=== PATIENT | male | born 1965 | race Caucasian/White ===

== ENCOUNTER 2018-01-29 02:08 | Inpatient (IN) | payer OTHER ==
[~2018-01-29] VITALS: Ht 162.6 cm; Wt 56.2 kg
[2018-01-29 02:35] LABS: HEMATOCRIT 49.3 % (38.0-50.0); HEMOGLOBIN 17.1 G/DL (12.5-16.6); MCH 31.4 PG (29.0-34.0); MCHC 34.7 G/DL (30.0-36.0); MCV 90.6 FL (86-99); PLATELET COUNT 194 K/uL (156-360); RBC DIS.WIDTH-CV 12.2 % (11.8-14.6); RBC DIS.WIDTH-SD 40.3 % (39-53); RED BLOOD COUNT 5.44 M/uL (4.00-5.50); WHITE BLOOD COUNT 12.7 K/uL (4.1-10.2)
[2018-01-29 02:50] LABS: ALBUMIN 4.6 g/dL (3.2-4.8); CHLORIDE 100 mEq/L (99-109); SODIUM 141 mEq/L (136-147)
[2018-01-29 02:52] LABS: GLUCOSE 130 mg/dL (70-99)
[2018-01-29 02:53] LABS: TOTAL PROTEIN 7.5 g/dL (6.4-8.3)
[2018-01-29 02:54] LABS: TOTAL BILIRUBIN 0.7 mg/dL (0.0-1.0)
[2018-01-29 02:56] LABS: ALKALINE PHOSPHATASE 70 IU/L (3-129); CREATININE 1.1 mg/dL (0.6-1.3); GFR ESTIMATE (CALCULATED) > 59 mL/min/ (58.99-99999)
[2018-01-29 02:57] LABS: UREA NITROGEN (BUN) 18 mg/dL (9-23)
[2018-01-29 02:58] LABS: AST (GOT) 15 IU/L (2-34)
[2018-01-29 02:59] LABS: ALT (GPT) 19 IU/L (3-49)
[2018-01-29 03:03] LABS: MAGNESIUM 2.1 mg/dL (1.3-2.7)
[2018-01-29 03:22] LABS: LIPASE 23 U/L (1.0-51.0)
[2018-01-29 07:15] LABS: APPEARANCE CLEAR ((CLEAR)); BILIRUBIN NEGATIVE; BLOOD NEGATIVE; COLOR YELLOW ((YELLOW)); GLUCOSE (STRIP) NEGATIVE; KETONES 5; LEUKOCYTES NEGATIVE; NITRITE NEGATIVE; PROTEIN (STRIP) NEGATIVE; SPECIFIC GRAVITY 1.036 (1.000-1.030); UCUL ADDED? NO; UROBILINOGEN 0.2 MG/DL (0.2-1.0)
[2018-01-29 07:36] LABS: INTER. NORMALIZED RATIO 1.1
[2018-01-29 12:28] VITALS: BP 134/66
[2018-01-29 16:05] VITALS: BP 138/75
[2018-01-29 19:49] VITALS: BP 118/55
[2018-01-29 22:57] VITALS: BP 121/63
[2018-01-30 00:31] VITALS: BP 123/68
[2018-01-30 03:28] VITALS: BP 132/74
[2018-01-30 06:10] LABS: HEMATOCRIT 49.1 % (38.0-50.0); HEMOGLOBIN 16.4 G/DL (12.5-16.6); MCH 30.3 PG (29.0-34.0); MCHC 33.4 G/DL (30.0-36.0); MCV 90.6 FL (86-99); PLATELET COUNT 166 K/uL (156-360); RBC DIS.WIDTH-CV 12.5 % (11.8-14.6); RBC DIS.WIDTH-SD 41.3 % (39-53); RED BLOOD COUNT 5.42 M/uL (4.00-5.50); WHITE BLOOD COUNT 14.7 K/uL (4.1-10.2)
[2018-01-30 06:31] LABS: CHLORIDE 101 MEQ/L (99-109); CREATININE 0.9 MG/DL (0.6-1.3); GFR ESTIMATE (CALCULATED) > 59 mL/min/ (58.99-99999); GLUCOSE 124 mg/dL (70-99); POTASSIUM 4.3 MEQ/L (3.7-5.4); PREALBUMIN 15.3 mg/dL (10-40); SODIUM 137 MEQ/L (136-147); UREA NITROGEN (BUN) 12 mg/dL (9-23)
[2018-01-30 08:01] VITALS: BP 133/74
[2018-01-30 11:41] VITALS: BP 131/68
[2018-01-30 15:24] VITALS: BP 134/73
[2018-01-30 19:43] VITALS: BP 135/73
[2018-01-31] VITALS (8 sets, daily range): BP systolic 111–140; BP diastolic 66–81
[2018-01-31 06:38] LABS: HEMATOCRIT 47.4 % (38.0-50.0); HEMOGLOBIN 16.1 G/DL (12.5-16.6); MCH 30.8 PG (29.0-34.0); MCV 90.8 FL (86-99); NRBC (%) 0.4 /100 WBC (0-0); PLATELET COUNT 160 K/uL (156-360); RBC DIS.WIDTH-CV 12.7 % (11.8-14.6); RBC DIS.WIDTH-SD 42.2 % (39-53); RED BLOOD COUNT 5.22 M/uL (4.00-5.50); WHITE BLOOD COUNT 10.6 K/uL (4.1-10.2)
[2018-01-31 07:01] LABS: CHLORIDE 98 MEQ/L (99-109); CREATININE 0.9 MG/DL (0.6-1.3); GFR ESTIMATE (CALCULATED) > 59 mL/min/ (58.99-99999); POTASSIUM 5.1 MEQ/L (3.7-5.4); SODIUM 133 MEQ/L (136-147); UREA NITROGEN (BUN) 11 mg/dL (9-23)
[2018-01-31 07:08] LABS: GLUCOSE 270 mg/dL (70-99)
[2018-02-01 04:19] VITALS: BP 130/79
[2018-02-01 06:16] LABS: HEMATOCRIT 45.3 % (38.0-50.0); HEMOGLOBIN 15.1 G/DL (12.5-16.6); MCH 30.4 PG (29.0-34.0); MCHC 33.3 G/DL (30.0-36.0); MCV 91.1 FL (86-99); PLATELET COUNT 151 K/uL (156-360); RBC DIS.WIDTH-CV 12.4 % (11.8-14.6); RBC DIS.WIDTH-SD 41.2 % (39-53); RED BLOOD COUNT 4.97 M/uL (4.00-5.50)
[2018-02-01 06:41] LABS: CHLORIDE 99 MEQ/L (99-109); CREATININE 0.9 MG/DL (0.6-1.3); GFR ESTIMATE (CALCULATED) > 59 mL/min/ (58.99-99999); POTASSIUM 4.2 MEQ/L (3.7-5.4); SODIUM 139 MEQ/L (136-147); UREA NITROGEN (BUN) 10 mg/dL (9-23)
[2018-02-01 06:45] LABS: GLUCOSE 106 mg/dL (70-99)
[2018-02-01 08:12] VITALS: BP 120/69
[2018-02-01 10:58] VITALS: BP 121/70
[2018-02-01 15:52] VITALS: BP 111/66
[2018-02-01 19:49] VITALS: BP 121/67
[2018-02-01 23:40] VITALS: BP 132/70
[2018-02-02 05:08] VITALS: BP 131/67
[2018-02-02 06:23] LABS: HEMATOCRIT 44.3 % (38.0-50.0); HEMOGLOBIN 15.1 G/DL (12.5-16.6); MCH 31.1 PG (29.0-34.0); MCHC 34.1 G/DL (30.0-36.0); MCV 91.2 FL (86-99); PLATELET COUNT 182 K/uL (156-360); RBC DIS.WIDTH-CV 12.2 % (11.8-14.6); RBC DIS.WIDTH-SD 40.6 % (39-53); RED BLOOD COUNT 4.86 M/uL (4.00-5.50); WHITE BLOOD COUNT 7.3 K/uL (4.1-10.2)
[2018-02-02 06:44] LABS: CHLORIDE 99 MEQ/L (99-109); CREATININE 0.8 MG/DL (0.6-1.3); GFR ESTIMATE (CALCULATED) > 59 mL/min/ (58.99-99999); GLUCOSE 104 mg/dL (70-99); SODIUM 137 MEQ/L (136-147); UREA NITROGEN (BUN) 12 mg/dL (9-23)
[2018-02-02 08:12] VITALS: BP 114/57
[2018-02-02 11:28] VITALS: BP 116/77
[2018-02-02 15:40] VITALS: BP 111/73
[2018-02-02 20:08] VITALS: BP 125/72
[2018-02-02 23:41] VITALS: BP 104/55
[2018-02-03 04:20] VITALS: BP 124/73
[2018-02-03 06:11] LABS: HEMATOCRIT 42.6 % (38.0-50.0); HEMOGLOBIN 14.6 G/DL (12.5-16.6); MCH 30.4 PG (29.0-34.0); MCHC 34.3 G/DL (30.0-36.0); MCV 88.8 FL (86-99); PLATELET COUNT 178 K/uL (156-360); RBC DIS.WIDTH-CV 11.9 % (11.8-14.6); WHITE BLOOD COUNT 5.3 K/uL (4.1-10.2)
[2018-02-03 06:40] LABS: CHLORIDE 99 MEQ/L (99-109); CREATININE 0.8 MG/DL (0.6-1.3); GFR ESTIMATE (CALCULATED) > 59 mL/min/ (58.99-99999); GLUCOSE 91 mg/dL (70-99); SODIUM 137 MEQ/L (136-147); UREA NITROGEN (BUN) 11 mg/dL (9-23)
[2018-02-03 08:42] VITALS: BP 115/64
[2018-02-03 11:46] VITALS: BP 110/69
[2018-02-03] MEDS ORDERED: HYDROCODON-ACE1 EAC7 PO (15:21)
[2018-02-03 15:28] VITALS: BP 99/64
== END 2018-02-03 16:58 | disposition home or self-care (01) | DRG 329 ==
LOC: EME 02:08 → SDC 08:15 → 3EAST 10:37 → 2SOUTH 10:37 → ENRESERV 11:49 → 3EAST 12:13
PROVIDERS: Emergency Medicine; Surgery
DX: K56.50 Intestinal adhesions [bands], unspecified as to partial versus complete obstruction (principal); K65.9 Peritonitis, unspecified; R18.8 Other ascites; N13.8 Other obstructive and reflux uropathy; T83.83XA Hemorrhage due to genitourinary prosthetic devices, implants and grafts, initial encounter; Y84.6 Urinary catheterization as the cause of abnormal reaction of the patient, or of later complication, without mention of misadventure at the time of the procedure; Q43.0 Meckel's diverticulum (displaced) (hypertrophic); R35.0 Frequency of micturition; K56.7 Ileus, unspecified; K38.9 Disease of appendix, unspecified; N40.1 Benign prostatic hyperplasia with lower urinary tract symptoms; N32.89 Other specified disorders of bladder; R33.8 Other retention of urine; R63.6 Underweight; K46.9 Unspecified abdominal hernia without obstruction or gangrene; Z68.21 Body mass index [BMI] 21.0-21.9, adult; Z86.010 Personal history of colon polyps; Z90.5 Acquired absence of kidney; Z93.1 Gastrostomy status; Z80.0 Family history of malignant neoplasm of digestive organs
CPT/HCPCS: 71045; 74177; 80048; 80053; 81003; 83605; 83690; 83735; 84134; 84153; 85027; 85610; 85730; 88302; 88307; 93005; 99281; 99285; J1100; J1650; J2060; J2250; J2405; J2710; J3010; J7030; J7040; J7050; J7643; S0074

== ENCOUNTER 2018-02-07 10:10 | Emergency (ER) | payer OTHER ==
[~2018-02-07] VITALS: Ht 162.6 cm; Wt 51.0 kg
[~2018-02-07 10:10] MED LIST: HYDROCODON-ACE1 EAC7 PO
[2018-02-07 11:08] LABS: MCH 30.7 PG (29.0-34.0); MCHC 34.9 G/DL (30.0-36.0); MCV 88.1 FL (86-99); RBC DIS.WIDTH-CV 12.1 % (11.8-14.6); RBC DIS.WIDTH-SD 38.9 % (39-53); RED BLOOD COUNT 4.88 M/uL (4.00-5.50); WHITE BLOOD COUNT 16.9 K/uL (4.1-10.2)
[2018-02-07 11:10] LABS: PLATELET COUNT 287 K/uL (156-360)
[2018-02-07 11:17] LABS: ALBUMIN 3.3 g/dL (3.2-4.8)
[2018-02-07 11:18] LABS: CHLORIDE 98 mEq/L (99-109); POTASSIUM 4.2 mEq/L (3.7-5.4); SODIUM 136 mEq/L (136-147)
[2018-02-07 11:20] LABS: GLUCOSE 100 mg/dL (70-99); TOTAL PROTEIN 5.8 g/dL (6.4-8.3)
[2018-02-07 11:22] LABS: TOTAL BILIRUBIN 0.6 mg/dL (0.0-1.0)
[2018-02-07 11:23] LABS: ALKALINE PHOSPHATASE 58 IU/L (3-129)
[2018-02-07 11:24] LABS: CREATININE 0.8 mg/dL (0.6-1.3); GFR ESTIMATE (CALCULATED) > 59 mL/min/ (58.99-99999)
[2018-02-07 11:25] LABS: AST (GOT) 20 IU/L (2-34); UREA NITROGEN (BUN) 15 mg/dL (9-23)
[2018-02-07 11:27] LABS: ALT (GPT) 29 IU/L (3-49)
[2018-02-07 12:15] LABS: APPEARANCE CLOUDY ((CLEAR)); BILIRUBIN NEGATIVE; GLUCOSE (STRIP) NEGATIVE; KETONES NEGATIVE; LEUKOCYTES NEGATIVE; NITRITE NEGATIVE; PROTEIN (STRIP) 30; SPECIFIC GRAVITY 1.019 (1.000-1.030); UROBILINOGEN 0.2 MG/DL (0.2-1.0)
[2018-02-07 12:19] LABS: COLOR BROWN ((YELLOW))
[2018-02-07 12:20] LABS: BLOOD LARGE
[2018-02-07 12:42] LABS: RED BLOOD CELLS TNTC /HPF (0-5); UCUL ADDED? YES
[2018-02-07 14:14] VITALS: BP 125/79
== END 2018-02-07 14:20 | disposition home or self-care (01) ==
LOC: EME 10:10
DX: R31.9 Hematuria, unspecified (principal); B96.20 Unspecified Escherichia coli [E. coli] as the cause of diseases classified elsewhere; N40.0 Benign prostatic hyperplasia without lower urinary tract symptoms; Z87.19 Personal history of other diseases of the digestive system; Z87.442 Personal history of urinary calculi; Z98.890 Other specified postprocedural states; Z90.5 Acquired absence of kidney
CPT/HCPCS: 80053; 81003; 83605; 85027; 87077; 87086; 87186; 99281; 99285; J7030